=== PATIENT | male | born 1970 | race Caucasian/White ===

== ENCOUNTER 2017-09-26 07:36 | Emergency (ER) | payer BC ==
[2017-09-26 08:00] VITALS: BP 109/71
--- NOTE | 2017-09-26 08:20 | UC ---
Abdominal Pain Male HPI - HPI Summary HPI Summary: The patient is a 47-year-old male with the onset of abdominal pain 4-5 days ago. Pain is lower abdominal and has been constant. It is and wanes. He initially was constipated. Bloated. Last p.m. he felt feverish. About 2 AM he got up to go to the bathroom and had a brief syncopal episode. Since 2 AM he has had some nausea and one episode of vomiting and about 10 episodes of diarrhea. His pain is worse with movement. En route to the [facility] this morning he noted that if they hit a bump his belly pain got worse. He denies any headache or neck pain. - History of Current Complaint Chief Complaint: UCAbdominalPain Stated Complaint: ABDOMINAL PAIN,PASSED OUT & HIT HEAD Time Seen by Provider: 09/26/17 07:41 Hx Obtained From: Patient Onset/Duration: Gradual Onset, Lasting Days Timing: Constant Severity Initially: Mild Severity Currently: Mild Pain Intensity: 4 Pain Scale Used: 0-10 Numeric Location: Other - lower abd Radiates: No Character: Colicy, Cramping Aggravating Factor(s): Food, Movement Alleviating Factor(s): Other Associated Signs And Symptoms: Positive: Fever - jacob, Decreased Appetite, Nausea , Vomiting, Diarrhea - Allergies/Home Medications Allergies/Adverse Reactions: Allergies Allergy/AdvReac Type Severity Reaction Status Date / Time No Known Allergies Allergy Verified 09/26/17 07:40 Home Medications: Home Medications NK [No Home Medications Reported] 09/26/17 [History Confirmed 09/26/17] PMH/Surg Hx/FS Hx/Imm Hx Previously Healthy: Yes - Surgical History Surgical History: None - Family History Known Family History: Positive: Cardiac Disease, Hypertension - Social History Alcohol Use: Rare Substance Use Type: None Smoking Status (MU): Never Smoked Tobacco - Immunization History Most Recent Tetanus Shot: unsure Review of Systems Constitutional: Fever - jacob Skin: Negative Eyes: Negative ENT: Negative Respiratory: Negative Cardiovascular: Negative Gastrointestinal: Abdominal Pain, Vomiting, Diarrhea, Nausea Genitourinary: Negative Motor: Negative Neurovascular: Negative Musculoskeletal: Negative Neurological: Negative Psychological: Negative Is Patient Immunocompromised?: No All Other Systems Reviewed And Are Negative: Yes Physical Exam Triage Information Reviewed: Yes Appearance: Well-Appearing, No Pain Distress, Well-Nourished Vital Signs: Initial Vital Signs Temp 97.8 F 09/26/17 07:40 Pulse 84 09/26/17 07:40 Resp 16 09/26/17 07:40 BP 112/72 09/26/17 07:40 Pulse Ox 99 09/26/17 07:40 Vital Signs Reviewed: Yes Eyes: Positive: Conjunctiva Clear, Other: - eomi/perrl ENT: Positive: Hearing grossly normal, Pharynx normal, Uvula midline, Other - moist mm. Negative: Nasal congestion, Nasal drainage, Trismus, Muffled voice Dental Exam: Normal Neck: Positive: Supple, Nontender, No Lymphadenopathy Respiratory: Positive: Lungs clear, Normal breath sounds, No respiratory distress, No accessory muscle use Cardiovascular: Positive: RRR, No Murmur Abdomen Description: Positive: Soft, McBurney's Point Tenderness. Negative: Nontender - markely tender RLQ and LLQ, CVA Tenderness (R), CVA Tenderness (L), Distended Musculoskeletal: Positive: ROM Intact, No Edema Neurological: Positive: Alert, Muscle Tone Normal Psychological Exam: Normal Skin Exam: Other - 2cm lac right lateral orbital rim/appears superficial and is well opposed Diagnostics - EKG Cardiac Rate: NL Cardiac Rhythm: Sinus: Normal Ectopy: None ST Segment: Normal Abd Pain Male Course/Dx - Course Course Of Treatment: advise transfer to [facility] for a higher level of care. decline EMS transfer. D/W Dr. Monson-accepts patient - Differential Dx/Clinical Impression Provider Diagnoses: abdominal pain. syncopal epsiode Discharge - Sign-Out/Discharge Documenting (check all that apply): Patient Departure - Discharge Plan Condition: Stable Disposition: TRANS HIGHER LVL OF CARE FAC Referrals: Gabriel Ricardo MD [Primary Care Provider] - Additional Instructions: go directly to [facility] ER I spoke to Dr. Monson they are expecting you - Billing Disposition and Condition Condition: STABLE Disposition: Trans Higher Lvl of Care Fac
== END 2017-09-26 08:21 | disposition short-term general hospital (02) ==
LOC: UCCORT 07:36
DX: R10.31 Right lower quadrant pain (principal); R10.32 Left lower quadrant pain; R55 Syncope and collapse
CPT/HCPCS: 93005; 99212; G0463

== ENCOUNTER 2018-06-05 07:40 | Emergency (ER) | payer BC ==
[2018-06-05 08:13] VITALS: BP 111/67
[2018-06-05 08:37] LABS: Influenza A Molecular NEGATIVE (Negative); Influenza B Molecular NEGATIVE (Negative)
[2018-06-05] MEDS ORDERED: Albuterol HFA INHALER* 8 gm MDI INH ONE (08:52)
--- NOTE | 2018-06-05 08:53 | UC ---
Respiratory Complaint HPI - HPI Summary HPI Summary: 48 yo male with 5 day hx of cough/nasal congestion/post nasal drip/sore throat and chest tightness no f/c no GÓMEZ or myalgias - History of Current Complaint Chief Complaint: UCRespiratory Stated Complaint: CHEST CONGESTION,SORE THROAT Time Seen by Provider: 06/05/18 08:16 Hx Obtained From: Patient Onset/Duration: Gradual Onset Severity Initially: Mild Severity Currently: Moderate Pain Intensity: 5 Pain Scale Used: 0-10 Numeric Character: Cough: Nonproductive Aggravating Factors: Nothing Alleviating Factors: Nothing Associated Signs And Symptoms: Positive: Nasal Congestion - Allergies/Home Medications Allergies/Adverse Reactions: Allergies Allergy/AdvReac Type Severity Reaction Status Date / Time No Known Allergies Allergy Verified 06/05/18 08:04 Home Medications: Home Medications Acetaminophen TAB* [Tylenol TAB*] 650 mg PO Q4H PRN 06/05/18 [History Confirmed 06/05/18] Pseudoephedrine TAB* [Sudafed TAB*] 30 mg PO Q12H PRN 06/05/18 [History Confirmed 06/05/18] PMH/Surg Hx/FS Hx/Imm Hx Previously Healthy: Yes Respiratory History: Bronchitis - Surgical History Surgical History: Yes Surgery Procedure, Year, and Place: APPENDECTOMY, AUGUST 2017 - Family History Known Family History: Positive: Cardiac Disease, Hypertension - Social History Alcohol Use: Rare Substance Use Type: None Smoking Status (MU): Never Smoked Tobacco - Immunization History Most Recent Tetanus Shot: unsure Review of Systems All Other Systems Reviewed And Are Negative: Yes Constitutional: Positive: Negative Skin: Positive: Negative Eyes: Positive: Negative ENT: Positive: Sore Throat, Nasal Discharge, Sinus Congestion Respiratory: Positive: Cough Cardiovascular: Positive: Negative Gastrointestinal: Positive: Negative Genitourinary: Positive: Negative Motor: Positive: Negative Neurovascular: Positive: Negative Musculoskeletal: Positive: Negative Neurological: Positive: Negative Psychological: Positive: Negative Physical Exam Triage Information Reviewed: Yes Appearance: Well-Appearing, No Pain Distress, Well-Nourished Vital Signs: Initial Vital Signs Temp 97.7 F 06/05/18 08:05 Pulse 89 06/05/18 08:05 Resp 15 06/05/18 08:05 BP 111/67 06/05/18 08:05 Pulse Ox 98 06/05/18 08:05 Vital Signs Reviewed: Yes Eyes: Positive: Conjunctiva Clear ENT: Positive: Hearing grossly normal, Pharynx normal, Nasal congestion, TMs normal, Uvula midline. Negative: Nasal drainage, TM bulging, TM dull, TM red, Tonsillar swelling, Tonsillar exudate, Trismus, Muffled voice, Hoarse voice, Dental tenderness, Sinus tenderness Dental Exam: Normal Neck: Positive: Supple, Nontender, No Lymphadenopathy Respiratory: Positive: No respiratory distress, No accessory muscle use, Wheezing - with forced exp, Other: - bronchospastic cough Cardiovascular: Positive: RRR, No Murmur Musculoskeletal: Positive: ROM Intact, No Edema Neurological: Positive: Alert Psychological Exam: Normal Skin Exam: Normal Respiratory Course/Dx - Course Course Of Treatment: influenza (-) - Differential Dx/Diagnosis Provider Diagnosis: Acute bronchitis with bronchospasm Discharge - Sign-Out/Discharge Documenting (check all that apply): Patient Departure All imaging exams completed and their final reports reviewed: No Studies - Discharge Plan Condition: Stable Disposition: HOME Prescriptions: Amoxicillin PO (*) [Amoxicillin 875 MG (*)] 875 mg PO BID #14 tab predniSONE [Deltasone 20 MG TAB] 40 mg PO DAILY #10 tab Patient Education Materials: Acute Bronchitis (ED), How to Use a Metered-Dose Inhaler and a Spacer (ED) Referrals: Edmundo Wall [Primary Care Provider] - 4 Days (if not better) - Billing Disposition and Condition Condition: STABLE Disposition: Home
== END 2018-06-05 09:13 | disposition home or self-care (01) ==
LOC: UCCORT 07:40
DX: J20.9 Acute bronchitis, unspecified (principal)
CPT/HCPCS: 99213; A9270-GY; G0463